=== PATIENT | female | born 1980 | race Caucasian/White ===

== ENCOUNTER → 2021-09-27 12:38 | Outpatient (BNVA) | payer OTHER, SELFPAY | PROVIDERS: Family Provider Internal Medicine; PCP Internal Medicine; Visit Provider Nurse Practitioner Family | DX: Z20.822 Contact with and (suspected) exposure to COVID-19 (principal) | CPT/HCPCS: 87400; 87426; 87635 ==

== ENCOUNTER 2023-06-17 11:30 | Emergency (ER) | payer SELFPAY ==
[2023-06-17] VITALS (7 sets, daily range): BP systolic 126–202; BP diastolic 87–127; PULSE 76–98; RESP 13–25; TEMP 36.7; O2SAT 95–100; BMI 30.2
--- NOTE | 2023-06-17 12:39 | CT_ITS ---
WS: [id number] CT HEAD TECHNIQUE: Noncontrast CT of the head obtained from the skullbase to the vertex. CLINICAL INFORMATION: headache COMPARISON: CT 2017 DLP: 1119.[address] scans at [facility] use at least one of these dose optimization techniques: automated e xposure control; mA and/or kV adjustment per patient size (includes targeted exams where dose is matc hed to clinical indication); or iterative reconstruction. FINDINGS: No evidence of intracranial hemorrhage or mass effect. Ventricular system and basal cisterns are sahu nt. No extra-axial fluid collections. No evidence of mass or mass effect. Normal moore-white different iation. Paranasal sinuses and mastoid air cells are well aerated. .Normal visualized soft tissues. CT/CT head wo con* [id number] IMPRESSION: 1. No evidence of intracranial hemorrhage or mass effect. 2. Normal moore-white differentiation. 3. No acute intracranial findings.
[2023-06-17 12:53] LABS: Basophils # 0.1 10^3/uL (0.0-0.1); Basophils % 0.7 %; Eosinophils # 0.1 10^3/uL (0.0-0.8); Eosinophils % 1.5 %; Lymphocytes # 2.1 10^3/uL (0.8-4.8); Lymphocytes % 28.5 %; Mean Corpuscular Hemoglobin 21.9 pg (28.0-34.0); Mean Corpuscular Volume 75.4 fl (81-99); Mean Platelet Volume 9.7 fL (7.4-10.4); Monocytes # 0.4 10^3/uL (0.2-0.9); Monocytes % 5.9 %; Neutrophils # 4.62 10^3/uL (1.8-7.7); Nucleated Red Blood Cells % 0 %; Platelet Count 294 10^3/cmm (130-400); Red Blood Count 4.11 10^6/uL (4.1-5.3); Red Cell Distribution Width 17.4 % (12.1-15.1); White Blood Count 7.3 10^3/uL (4.0-10.0)
[2023-06-17 12:55] LABS: Erythrocyte Sedimentation Rate 10 mm/hr (0-15)
[2023-06-17 13:00] LABS: D Dimer 0.56 ug/mIFEU (0-0.59)
[2023-06-17 13:04] LABS: Alanine Aminotransferase 17 U/L (0-33); Alkaline Phosphatase 52 U/L (35-105); Anion Gap 17.3 (5-19); Aspartate Amino Transferase 26 U/L (0-32); Blood Urea Nitrogen 7 mg/dL (6-20); Calcium 8.7 mg/dL (8.5-10.5); Carbon Dioxide 20 mmol/L (22-29); Chloride 98 mmol/L (98-107); Globulin 2.9 g/dL (1.3-4.6); Glomerular Filtration Rate 135.3 mL/min (90-130); Glucose 85 mg/dL (65-115); Osmolality Calculated 271 mOsm/kg (285-295); Potassium 3.3 mmol/L (3.5-5.1); Sodium 132 mmol/L (136-145); Total Bilirubin 0.2 mg/dL (0.15-1.2); Total Protein 6.9 g/dL (6.6-8.7)
[2023-06-17] MEDS: metoclopramide 5 mg/mL SDV 2 mL 10 MG IVP (13:40)
[2023-06-17] MEDS: diphenhydrAMINE 50 mg/mL SDV 1mL IVP (13:40)
[2023-06-17] MEDS: sodium chloride 0.9% 1,000 ML 999 ML IV (13:40)
[2023-06-17] MEDS: ketorolac 30 mg/mL INJ IVP (13:40)
--- NOTE | 2023-06-17 13:57 | W.ED.HA ---
HPI - Headache General: Chief Complaint: Headache Stated Complaint: headache and neck pain Time Seen by Provider: 06/17/23 11:40 History of Present Illness: Patient presents to the ER with a 5-day history of head and neck pain. Patient states that her headache started in her left temporal region and runs down her left shoulder. Patient states she has not had a migraine since 2017. Patient does have a history of DVT type anticoagulation. Patient states when her headache started she could see her heart rate pulsatile in her vision. Patient states it does come and g. It is usually starts in the morning gets worse throughout the day. Patient does admit she is an alcoholic and drinks daily. Review of Systems General: Reports: 10 or more systems reviewed and unremarkable except in HPI and below PFSH ED PFSH: Medical History Alcoholism Family History Father Diabetes Hypertension Hx of blood clots Bipolar 1 disorder Anxiety Depression Mother No problems noted. Social History Smoking and tobacco status: current every day smoker cigarettes Quit status (tobacco): not considering quitting Second hand smoke exposure: No Smoking risk assessment/counseling performed?: No Alcohol intake: current Desire information about alcohol rehabilitation?: No Counseling given: No Substance/Drug Use: current Substance/Drug use frequency: Special occassions/opportunity only Desire information about substance/drug rehabilitation?: No Counseling given: No Adopted: No Caregiver/support person: No Lives independently: Yes Household members: spouse and children Housing: House Marital status: Number of children: 2 Highest education level completed: GED or Equivalent service: No Current occupational status: employed Physical Exam Const: COMMON NORMALS: no acute distress, average body habitus, patient oriented x3, no limitations, healthy appearing, alert and well nourished HENMT: COMMON NORMALS: normocephalic, atraumatic, hearing grossly normal bilaterally, external ears normal, Normal external nose present and moist oral mucous membranes HEAD & SCALP: normocephalic and atraumatic NOSE: Normal external nose present EXTERNAL EAR: Yes external ears normal Eye: COMMON NORMALS: Equal, round and reactive pupils present, EOMs intact bilaterally, conjunctivae normal and no scleral icterus CONJUNCTIVA: Yes conjunctivae normal PUPIL: Yes Equal, round and reactive pupils present Neck/C-Spine: COMMON NORMALS: full ROM, no lymphadenopathy, supple, no meningeal signs, no JVD and Thyroid normal THYROID: Thyroid normal Chest: COMMONS NORMALS: normal inspection of the chest Resp: COMMON NORMALS: normal respiratory effort, No retractions, No use of accessory muscles and clear to auscultation bilaterally AUSCULTATION: clear to auscultation bilaterally Cardio: COMMON NORMALS: no JVD, regular rate, regular rhythm, S1 normal heart sound present, S2 normal heart sound present, No gallops present (Cardio), No clicks present (Cardio), No murmurs present (Cardio) and No rub (Cardio) RATE: regular rate RHYTHM: regular rhythm HEART SOUNDS: S1 normal heart sound present and S2 normal heart sound present GI: COMMON NORMALS: Normal to inspection, nondistended, normoactive bowel sounds present, Soft to palpation, No hepatosplenomegaly present and no masses PALPATION: Yes Soft to palpation and Yes No hepatosplenomegaly present : COMMON NORMALS: Yes no CVA tenderness BLADDER/KIDNEY EXAM: Yes no CVA tenderness Back/Pelvis: COMMON NORMALS: no CVA tenderness Neuro: COMMON NORMALS: patient oriented x3 SENSORIUM/ORIENTATION: Yes alert MENINGEAL SIGNS: Yes no meningeal signs Course Vital Signs: Vital signs: Vital Signs Temperature 98.1 F 06/17/23 11:37 Pulse Rate 78 06/17/23 14:59 Respiratory Rate 25 H 06/17/23 14:59 Blood Pressure 126/87 06/17/23 14:59 Pulse Oximetry 96 06/17/23 14:59 Oxygen Delivery Me thod Room Air 06/17/23 14:15 MDM - Headache Medical Decision Making Patient presents to the ER with sudden onset left-sided headache radiating down to her neck off and on for the last 5 days. Patient underwent evaluation and work-up that included blood work and CT scan. Essentially all of this was benign. Her blood work did show that she is amenable 9 and a little bit of hypokalemia with a potassium of 3.3. Differential Diagnosis Likely migraine and headache; Unlikely tension headache, subarachnoid hemorrhage, meningitis, sinusitis or postconcussion syndrome Medical Records I reviewed the patient's medical records. Lab Data I reviewed the patient's lab results. 06/17/23 12:41 06/17/23 12:[address] 06/17/23 12:39 IMPRESSION: 1. No evidence of intracranial hemorrhage or mass effect. 2. Normal moore-white differentiation. 3. No acute intracranial findings. Laboratory Results WBC 7.3 10^3/uL (4.0-10.0) 06/17/23 12:41 RBC 4.11 10^6/uL (4.1-5.3) 06/17/23 12:41 Hgb 9.0 g/dL (11.5-15.3) L 06/17/23 12:41 Hct 31.0 % (37.0-47.0) L 06/17/23 12:41 MCV 75.4 fl (81-99) L 06/17/23 12:41 MCH 21.9 pg (28.0-34.0) L 06/17/23 12:41 MCHC 29.0 g/dL (30.0-36.0) L 06/17/23 12:41 RDW 17.4 % (12.1-15.1) H 06/17/23 12:41 Plt Count 294 10^3/cmm (130-400) 06/17/23 12:41 MPV 9.7 fL (7.4-10.4) 06/17/23 12:41 Neut % (Auto) 63.0 % 06/17/23 12:41 Lymph % (Auto) 28.5 % 06/17/23 12:41 Rolette % (Auto) 5.9 % 06/17/23 12:41 Eos % (Auto) 1.5 % 06/17/23 12:41 Baso % (Auto) 0.7 % 06/17/23 12:41 Neut # (Auto) 4.62 10^3/uL (1.8-7.7) 06/17/23 12:41 Lymph # (Auto) 2.1 10^3/uL (0.8-4.8) 06/17/23 12:41 Rolette # (Auto) 0.4 10^3/uL (0.2-0.9) 06/17/23 12:41 Eos # (Auto) 0.1 10^3/uL (0.0-0.8) 06/17/23 12:41 Baso # (Auto) 0.1 10^3/uL (0.0-0.1) 06/17/23 12:41 Nucleated RBC % (auto) 0 % 06/17/23 12:41 Nucleated RBCs # 0.0 /100WBC 06/17/23 12:41 ESR 10 mm/hr (0-15) 06/17/23 12:41 D-Dimer 0.56 ug/mIFEU (0-0.59) 06/17/23 12:41 Sodium 132 mmol/L (136-145) L 06/17/23 12:41 Potassium 3.3 mmol/L (3.5-5.1) L 06/17/23 12:41 Chloride 98 mmol/L (98-107) 06/17/23 12:41 Carbon Dioxide 20 mmol/L (22-29) L 06/17/23 12:41 Anion Gap 17.3 (5-19) 06/17/23 12:41 BUN 7 mg/dL (6-20) 06/17/23 12:41 Creatinine 0.5 mg/dL (0.5-0.9) 06/17/23 12:41 GFR Calculation 135.3 mL/min (90-130) H 06/17/23 12:41 Glucose 85 mg/dL (65-115) 06/17/23 12:41 Calculated Osmolality 271 mOsm/kg (285-295) L 06/17/23 12:41 Calcium 8.7 mg/dL (8.5-10.5) 06/17/23 12:41 Total Bilirubin 0.2 mg/dL (0.15-1.2) 06/17/23 12:41 AST 26 U/L (0-32) 06/17/23 12:41 ALT 17 U/L (0-33) 06/17/23 12:41 Alkaline Phosphatase 52 U/L (35-105) 06/17/23 12:41 C-Reactive Protein 3.0 mg/L (0.0-4.9) 06/17/23 12:41 Total Protein 6.9 g/dL (6.6-8.7) 06/17/23 12:41 Albumin 4.0 g/dL (3.5-5.2) 06/17/23 12:41 Globulin 2.9 g/dL (1.3-4.6) 06/17/23 12:41 Urine Color Light yellow (Yellow) 06/17/23 14:43 Urine Appearance Clear (CLEAR) 06/17/23 14:43 Urine pH 6.5 (5-7) 06/17/23 14:43 Ur Specific Luther 1.005 (1.005-1.030) 06/17/23 14:43 Urine Protein Neg (Negative) 06/17/23 14:43 Urine Glucose (UA) Norm (Normal) 06/17/23 14:43 Urine Ketones 1+ (Negative) H 06/17/23 14:43 Urine Blood Neg (Negative) 06/17/23 14:43 Urine Nitrate Negative (Negative) 06/17/23 14:43 Urine Bilirubin Neg (Negative) 06/17/23 14:43 Urine Urobilinogen Norm mg/dL (Negative) 06/17/23 14:43 Ur Leukocyte Esterase Negative (Negative) 06/17/23 14:43 Discharge Plan Discharge Patient Disposition: Home Clinical Impression: Headache Qualifiers: Headache type: tension-type Headache chronicity pattern: acute headache Intractability: intractable Qualified Code(s): G44.201 - Tension-type headache, unspecified, intractable Anemia Qualifiers: Anemia type: unspecified type Qualified Code(s): D64.9 - Anemia, unspecified Condition: Stable Prescriptions: No Action Aleve 220 mg Tablet 1,320 mg PO .ONE TIME DOSE TODAY Advil 200 mg Tablet 800 mg PO Q6H PRN (Reason: Pain) Discharge Orders: Discharge ED (Routine); Ordered 06/17/23 Ordered By: Jevon Reyes Referrals: Yousif Vázquez MD [Primary Care Provider] - 1 week Patient Instructions: Anemia, Acute Headache (ED) Activity Restrictions/Additional Instructions: Please follow-up with your family practice doctor in approximately 1 week for further evaluation and treatment. Please return to the ER if your symptoms worsen. Coding Level of Care Code ED Sheriff Officer for Pari Mcneal
[2023-06-17 14:58] LABS: Add Urine Microscopic? NO; Charge for UA Resulting for Rev
[2023-06-17 15:03] LABS: Bilirubin Urine Neg (Negative); Blood Urine Neg (Negative); Glucose Urine UA Norm (Normal); Ketones Urine 1+ (Negative); Leukocyte Esterase Urine Negative (Negative); Nitrate Urine Negative (Negative); Protein Urine Neg (Negative); Specific Gravity, Urine 1.005 (1.005-1.030); Urine Appearance Clear (CLEAR); Urine Color Light yellow (Yellow); Urobilinogen Urine Norm (Negative); pH Urine 6.5 (5-7)
== END 2023-06-17 15:36 | disposition home or self-care (01) ==
PROVIDERS: Emergency Provider Emergency Medicine; PCP Internal Medicine
DX: G44.201 Tension-type headache, unspecified, intractable (principal); D64.9 Anemia, unspecified
CPT/HCPCS: 70450; 80053; 81003; 85025; 85378; 85651; 86140; 96361; 96374; 96375; 99285; J1200; J1885; J2765; J7030

== ENCOUNTER 2023-06-20 16:03 | Emergency (ER) | payer SELFPAY ==
[2023-06-20 16:19] VITALS: BP 196/116; PULSE 89; RESP 16; TEMP 36.8; O2SAT 100; BMI 29.8
--- NOTE | 2023-06-20 16:30 | W.ED.HA ---
HPI - Headache General: Chief Complaint: Headache Stated Complaint: High Blood Pressure, head neck and pain Time Seen by Provider: 06/20/23 16:27 History of Present Illness: Patient presents to the ER with complaints of headache and high blood pressure. Patient was sent over here from [facility]. Patient went there to get blood pressure medicine for her newly diagnosed high blood pressure. They found her blood pressure to be in the 200s and they sent her over here for further evaluation and treatment. Patient has no other complaints at this time other than headache. Patient was seen here approximately 3 days ago and had a complete work-up for similar symptoms. Which was gated. Review of Systems General: Reports: 10 or more systems reviewed and unremarkable except in HPI and below PFSH ED PFSH: Medical History Alcoholism Family History Father Diabetes Hypertension Hx of blood clots Bipolar 1 disorder Anxiety Depression Mother No problems noted. Social History Smoking and tobacco status: current every day smoker cigarettes Quit status (tobacco): not considering quitting Second hand smoke exposure: No Smoking risk assessment/counseling performed?: No Alcohol intake: current Desire information about alcohol rehabilitation?: No Counseling given: No Substance/Drug Use: current Substance/Drug use frequency: Special occassions/opportunity only Desire information about substance/drug rehabilitation?: No Counseling given: No Adopted: No Caregiver/support person: No Lives independently: Yes Household members: spouse and children Housing: House Marital status: Number of children: 2 Highest education level completed: GED or Equivalent service: No Current occupational status: employed Physical Exam Const: COMMON NORMALS: no acute distress, average body habitus, patient oriented x3, no limitations, healthy appearing, alert and well nourished HENMT: COMMON NORMALS: normocephalic, atraumatic, hearing grossly normal bilaterally, external ears normal, Normal external nose present and moist oral mucous membranes HEAD & SCALP: normocephalic and atraumatic NOSE: Normal external nose present EXTERNAL EAR: Yes external ears normal Neck/C-Spine: COMMON NORMALS: full ROM, no lymphadenopathy, supple, no meningeal signs, no JVD and Thyroid normal THYROID: Thyroid normal Chest: COMMONS NORMALS: normal inspection of the chest and normal palpation of entire chest wall Resp: COMMON NORMALS: normal respiratory effort, No retractions, No use of accessory muscles and clear to auscultation bilaterally AUSCULTATION: clear to auscultation bilaterally Cardio: COMMON NORMALS: no JVD, regular rate, regular rhythm, S1 normal heart sound present, S2 normal heart sound present, No gallops present (Cardio), No clicks present (Cardio), No murmurs present (Cardio) and No rub (Cardio) RATE: regular rate RHYTHM: regular rhythm HEART SOUNDS: S1 normal heart sound present and S2 normal heart sound present GI: COMMON NORMALS: Normal to inspection, nondistended, normoactive bowel sounds present, Soft to palpation, non-tender, No hepatosplenomegaly present and no masses PALPATION: Yes Soft to palpation and Yes No hepatosplenomegaly present Neuro: COMMON NORMALS: patient oriented x3 SENSORIUM/ORIENTATION: Yes alert MENINGEAL SIGNS: Yes no meningeal signs Course Vital Signs: Vital signs: Vital Signs Temperature 98.3 F 06/20/23 16:19 Pulse Rate 73 06/20/23 18:00 Respiratory Rate 16 06/20/23 18:00 Blood Pressure 126/78 06/20/23 18:00 Pulse Oximetry 99 06/20/23 18:00 Oxygen Delivery Me thod Room Air 06/20/23 16:19 MDM - Headache Medical Decision Making Patient presents ER with high blood pressure and headache. Patient was seen 3 days ago for the exact same symptoms and work-up. Today patient was given 0.2 mg clonidine p.o. and 60 mg IM of Toradol. Upon further evaluation her blood pressure drastically improved down to normal and her headache had been resolved. Patient will be discharged with clonidine to go home on and told to follow back up with her PCP. Differential Diagnosis Likely headache; Unlikely migraine, tension headache, subarachnoid hemorrhage, meningitis or sinusitis Medical Records I reviewed the patient's medical records. Lab Data I reviewed the patient's lab results. Discharge Plan Discharge Patient Disposition: Home Clinical Impression: Headache Qualifiers: Headache type: unspecified Headache chronicity pattern: acute headache Intractability: not intractable Qualified Code(s): R51.9 - Headache, unspecified HBP (high blood pressure) Qualifiers: Hypertension type: unspecified Qualified Code(s): I10 - Essential (primary) hypertension Condition: Stable Prescriptions: New clonidine HCl 0.1 mg tablet 0.05 mg PO Q12H Qty: 60 0RF No Action Aleve 220 mg Tablet 1,320 mg PO .ONE TIME DOSE TODAY Advil 200 mg Tablet 800 mg PO Q6H PRN (Reason: Pain) Discharge Orders: Discharge ED (Routine); Ordered 06/20/23 Ordered By: Jevon Reyes Referrals: Yousif Vázquez MD [Primary Care Provider] - 4-7 days Patient Instructions: Hypertension Activity Restrictions/Additional Instructions: Please take your medicine as directed. Please follow-up with your family practice doctor in the next 7 to 10 days or sooner as needed for further evaluation and treatment. Coding Level of Care Code ED Rocket Test Fire Worker for Pari Mcneal
[2023-06-20 16:44] VITALS: BP 204/120
[2023-06-20] MEDS: cloNIDine 0.1 mg Tablet 0.2 MG PO (16:44)
[2023-06-20 18:00] VITALS: BP 126/78; PULSE 73; RESP 16; O2SAT 99
[2023-06-20] MEDS: ketorolac 60 mg/2 mL INJ IM (18:12)
[2023-06-20 19:15] VITALS: BP 111/79; PULSE 67; RESP 16; O2SAT 96
== END 2023-06-20 19:17 | disposition home or self-care (01) ==
PROVIDERS: Emergency Provider Emergency Medicine; PCP Internal Medicine
DX: R51.9 Headache, unspecified (principal); I10 Essential (primary) hypertension; F17.210 Nicotine dependence, cigarettes, uncomplicated
CPT/HCPCS: 96372; 99284; J1885

== ENCOUNTER 2024-08-20 08:27 | Emergency (ER) | payer OTHER, SELFPAY ==
--- NOTE | 2024-08-20 08:32 | XR_ITS ---
WS: [id number] Portable AP upright chest, 08/20/2024 Clinical Data: dyspnea/cough Comparison: Portable chest, 12/14/2015 Findings: No nodules, masses or effusions are seen. The heart is normal. The pulmonary vascularity is not increased. No pneumonia or pneumothorax is seen. XR/XR chest 1V portable [id number] Impression: Negative chest.
--- NOTE | 2024-08-20 08:32 | ECG_ITS ---
[facility] Test Date: 2024-08-20 Pat Name: Amada Rucker Department: Room: Gender: Female Housecleaner: : 1980 Requested By: Orlando Santoro Order Number: [id number] Saskia MD: Mani Quintero M.D. Measurements Intervals [place] Rate: 80 P: 55 PA: 175 QRS: 41 QRSD: 106 T: 37 QT: 355 QTc: 409 Interpretive Statements SINUS RHYTHM Compared to ECG 05/03/2017 14:23:15 No significant changes Electronically Signed On 08-20-2024 16:35:53 CDT by Mani Quintero M.D. [id number]
[2024-08-20 08:33] VITALS: BP 184/88; PULSE 109; RESP 22; TEMP 36.4; O2SAT 99
[2024-08-20 09:04] VITALS: BP 184/88; PULSE 88; O2SAT 99
--- NOTE | 2024-08-20 09:08 | ED_ITS ---
HPI - General Adult 2 General: Chief complaint: General Medical Stated complaint: face swelling, high bp, pain in neck Time Seen by Provider: 08/20/24 08:31 History of Present Illness: 44-year-old female presents emergency ro om with complaint of swelling on the left side of her face. States it began yesterday she denies any difficulty speaking or swallowing she denies any teeth pain. She felt a little bit short of breath last night but she states she thinks it may be a cardiac site. She does not have any fever on arrival here. She denies any chest pain or abdominal pain. Patient admits to being alcoholic but states she has cut down her drinking substantially is only drinking a couple drinks a day for the last several weeks Associated symptoms: Deny chest pain, dyspnea or rash Related Data Home Medications Medication Instructions Recorded Confirmed ibuprofen 200 mg tablet (Advil) 800 mg PO Q6H PRN Pain 06/17/23 08/20/24 naproxen sodium 220 mg tablet 1,320 mg PO PRN PRN Pain 06/17/23 08/20/24 (Aleve) lisinopril 20 1 tab PO DAILY 08/20/24 08/20/24 mg-hydrochlorothiazide 12.5 mg tablet Previous Rx's Medication Instructions Recorded amoxicillin 875 mg-potassium 1 tab PO BID #20 tabs 08/20/24 clavulanate 125 mg tablet Allergies Allergy/AdvReac Type Severity Reaction Status Date / Time acetaminophen [From Vicodin] Allergy Intermediate itching, Verified 06/20/23 16:25 rash hydrocodone [From Vicodin] Allergy Intermediate itching, Verified 06/20/23 16:25 rash morphine Allergy Intermediate itching, Verified 06/20/23 16:25 rash Review of Systems 2 Const: Denies: fever(s) or chills Card: Denies: chest pain Resp: Denies: dyspnea GI: Denies: abdominal pain : Denies: dysuria, urinary frequency or urinary urgency Musc: Denies: neck pain or back pain Skin/Breast: Reports: skin pain, skin tenderness and skin swelling; Denies: rash PFSH ED 2 PFSH: Medical History Alcoholism Family History Father Diabetes Hypertension Hx of blood clots Bipolar 1 disorder Anxiety Depression Mother No problems noted. Social History Smoking and tobacco/nicotine status: current every day tobacco/nicotine user cigarettes Quit status (tobacco/nicotine): not considering quitting Second hand smoke exposure: No Alcohol intake: current Substance/Drug Use: current Substance/Drug use frequency: Special occassions/opportunity only Adopted: No Caregiver/support person: No Lives independently: Yes Household members: spouse and children Housing: House Marital status: Number of children: 2 Highest education level completed: GED or Equivalent service: No Current occupational status: employed Physical Exam 2 Const: GENERAL APPEARANCE: cooperative ORIENTATION/CONSCIOUSNESS: Yes awake, Yes oriented to person, Yes oriented to place and Yes oriented to time HENMT: COMMON NORMALS: normocephalic, atraumatic and hearing grossly normal bilaterally HEAD & SCALP: normocephalic and atraumatic OTHER: Moderate swelling of the left side of the face over the cheek left mandible extending to the neck. There is no tenderness palpation along the parotid gland no swelling or tenderness in the submandibular space no inflammation around the sublingual gland under the tongue on direct examination. There is no induration there is no redness or erythema. It is moderately tender to the touch no palpable lymph nodes were noted. On oral exam there is no evidence of significant deterioration of teeth or fractured teeth no swelling at the gumline. No palpable pain along the gumline of the left mandibular molars Resp: COMMON NORMALS: normal respiratory effort, No retractions, No use of accessory muscles and clear to auscultation bilaterally AUSCULTATION: clear to auscultation bilaterally Cardio: COMMON NORMALS: regular rate, regular rhythm and No murmurs present (Cardio) RATE: regular rate RHYTHM: regular rhythm GI: COMMON NORMALS: Soft to palpation and No hepatosplenomegaly present A USCULTATION: Yes normoactive bowel sounds PALPATION: Yes Soft to palpation, No Tenderness to palpation present (GI), No Guarding due to palpation present (GI) and Yes No hepatosplenomegaly present Extremity: COMMON NORMALS: normal to inspection, capillary refill normal, no clubbing, cyanosis or edema, no calf tenderness and no pedal edema Neuro: SENSORIUM/ORIENTATION: Yes oriented to person, Yes oriented to place and Yes oriented to time Skin: COMMON NORMALS: no rashes or lesions noted GENERAL SKIN EXAM: no rashes or lesions noted OTHER: No appreciable lacerations or abrasions on the left side of the face or neck Course 2 Vital Signs: Vital signs: Vital Signs Temperature 97.6 F 08/20/24 08:33 Pulse Rate 65 08/20/24 13:41 Respiratory Rate 22 H 08/20/24 08:33 Blood Pressure 160/84 08/20/24 13:41 Pulse Oximetry 100 08/20/24 13:41 Oxygen Delivery Me thod Room Air 08/20/24 13:34 MDM - General Adult Medical Decision Making No evidence of parotitis. Patient denies any tooth pain at time did not see any gum swelling or irritation. CT shows facial cellulitis she has no obvious lacerations or skin breaks abrasions that might be the focus of it. She denies any tooth pain. Discussed with radiologist he did not feel there is anything radiating directly out of the teeth themselves. We discussed getting CT facial bones radiologist felt that would not contribute significantly to the mandible well on the CT of the neck. Will start patient on Augmentin. Continue other medications. If symptoms worsen recheck. Medical Records I reviewed the patient's medical records. Lab Data I reviewed the patient's lab results. 08/20/24 09:03 08/20/24 09:03 Radiology Impressions Chest X-Ray 08/20/24 08:32 Impression: Negative chest. Neck CT 08/20/24 09:45 IMPRESSION: 1. LEFT facial cellulitis extending into the LEFT submandibular space and submental soft tissues. No drainable abscess or fluid collection. 2. Airway is patent. 3. A few reactive LEFT submandibular and upper cervical chain lymph nodes. Laboratory Results WBC 4.18 10^3/uL (3.29-11.43) 08/20/24 09:03 RBC 3.97 10^6/uL (3.85-5.65) 08/20/24 09:03 Hgb 8.80 g/dL (11.27-16.99) L 08/20/24 09:03 Hct 30.7 % (36-47) L 08/20/24 09:03 MCV 77.3 fl (85-98) L 08/20/24 09:03 MCH 22.2 pg (27-33) L 08/20/24 09:03 MCHC 28.7 g/dL (30-55) L 08/20/24 09:03 RDW 17.2 % (12.1-15.1) H 08/20/24 09:03 Plt Count 211 10^3/cmm (157-399) 08/20/24 09:03 MPV 9.6 fL (7.4-10.4) 08/20/24 09:03 Neut % (Auto) 65.2 % 08/20/24 09:03 Lymph % (Auto) 24.6 % 08/20/24 09:03 [place] % (Auto) 8.1 % 08/20/24 09:03 Eos % (Auto) 1.7 % 08/20/24 09:03 Baso % (Auto) 0.2 % 08/20/24 09:03 Neut # (Auto) 2.72 10^3/uL (1.8-7.7) 08/20/24 09:03 Lymph # (Auto) 1.0 10^3/uL (0.8-4.8) 08/20/24 09:03 [place] # (Auto) 0.3 10^3/uL (0.2-0.9) 08/20/24 09:03 Eos # (Auto) 0.1 10^3/uL (0.0-0.8) 08/20/24 09:03 Baso # (Auto) 0.0 10^3/uL (0.0-0.1) 08/20/24 09:03 Nucleated RBC % (auto) 0 % 08/20/24 09:03 Nucleated RBCs # 0.0 /100WBC 08/20/24 09:03 Sodium 140 mmol/L (136-145) 08/20/24 09:03 Potassium 3.2 mmol/L (3.5-5.1) L 08/20/24 09:03 Chloride 105 mmol/L (98-107) 08/20/24 09:03 Carbon Dioxide 22 mmol/L (22-29) 08/20/24 09:03 Anion Gap 16.2 (5-19) 08/20/24 09:03 BUN 8 mg/dL (6-20) 08/20/24 09:03 Creatinine 0.6 mg/dL (0.5-0.9) 08/20/24 09:03 GFR Calculation 109.1 mL/min (90-130) 08/20/24 09:03 Glucose 112 mg/dL (65-115) 08/20/24 09:03 Calculated Osmolality 289 mOsm/kg (285-295) 08/20/24 09:03 Calcium 8.8 mg/dL (8.5-10.5) 08/20/24 09:03 Total Bilirubin 0.4 mg/dL (0.15-1.2) 08/20/24 09:03 AST 58 U/L (0-32) H 08/20/24 09:03 ALT 51 U/L (0-33) H 08/20/24 09:03 Alkaline Phosphatase 49 U/L (35-105) 08/20/24 09:03 Ammonia 42 umol/L (11-51) 08/20/24 09:03 Troponin T Baseline < 6 ng/L (0-10) 08/20/24 09:03 Troponin T 120 Minute 6.00 ng/L (0-10) 08/20/24 10:36 Delta Troponin T 0.85123 ABS# (0-10) 08/20/24 10:36 Total Protein 6.6 g/dL (6.6-8.7) 08/20/24 09:03 Albumin 3.9 g/dL (3.5-5.2) 08/20/24 09:03 Globulin 2.7 g/dL (1.3-4.6) 08/20/24 09:03 Urine Color Yellow (Yellow) 08/20/24 09:10 Urine Appearance Cloudy (CLEAR) A 08/20/24 09:10 Urine pH 7.0 (5-7) 08/20/24 09:10 Ur Specific [place] 1.002 (1.005-1.030) L 08/20/24 09:10 Urine Protein Negative (Negative) 08/20/24 09:10 Urine Glucose (UA) Negative (Normal) 08/20/24 09:10 Urine Ketones Negative (Negative) 08/20/24 09:10 Urine Blood Negative (Negative) 08/20/24 09:10 Urine Nitrate Negative (Negative) 08/20/24 09:10 Urine Bilirubin Negative (Negative) 08/20/24 09:10 Urine Urobilinogen 0.2 mg/dL (Negative) 08/20/24 09:10 Ur Leukocyte Esterase Negative (Negative) 08/20/24 09:10 Urine RBC 0-2 /hpf (0-2) 08/20/24 09:10 Urine WBC 0-5 /hpf (0-5) 08/20/24 09:10 Ur Squamous Epith Cells 0-5 /hpf (0-5) 08/20/24 09:10 Amorphous Sediment Not Reportable 08/20/24 09:10 Urine Bacteria None seen /hpf (NONE) 08/20/24 09:10 Hyaline Casts 0-4 /lpf H 08/20/24 09:10 Ethyl Alcohol < 10 mg/dL (0-10) 08/20/24 09:03 All radiology interpretation(s) finalized by discharge Discharge Plan Discharge Patient Disposition: Home Clinical Impression: Cellulitis and abscess of face Condition: Stable Prescriptions: New amoxicillin-pot clavulanate 875-125 mg tablet 1 tab PO BID Qty: 20 0RF No Action naproxen sodium [Aleve] 220 mg Tablet 1,320 mg PO PRN PRN (Reason: Pain) ibuprofen [Advil] 200 mg Tablet 800 mg PO Q6H PRN (Reason: Pain) lisinopril-hydrochlorothiazide 20-12.5 mg tablet 1 tab PO DAILY Discharge Orders: Discharge ED (Routine); Ordered 08/20/24 Ordered By: Orlando Méndez Referrals: Yousif Vázquez MD [Primary Care Provider] - Discharge Diet: Advance as tolerated Discharge Activity: Resume usual activity Patient Instructions: Opioid Safety, Pain Management Activity Restrictions/Additional Instructions: Thank you for choosing [facility] for your healthcare needs today. It is very important that you follow up as instructed or that you return to the Emergency Department should you have concerns or if your condition changes or worsens in any way. You are seen today with complaint of facial pain and swelling. CT shows some mild cellulitis that appears to be emanating from the tooth. There is no abscess present recommend that you start oral antibiotics Augmentin 1 pill twice a day for 10 days. If symptoms worsen or change recheck. Coding Level of Care Code ED Prosthetic Technician for Pari Mcneal
[2024-08-20 09:15] LABS: Basophils % 0.2 %; Eosinophils # 0.1 10^3/uL (0.0-0.8); Eosinophils % 1.7 %; Hematocrit 30.7 % (36-47); Lymphocytes % 24.6 %; Mean Corpuscular HGB Conc 28.7 g/dL (30-55); Mean Corpuscular Hemoglobin 22.2 pg (27-33); Mean Corpuscular Volume 77.3 fl (85-98); Mean Platelet Volume 9.6 fL (7.4-10.4); Monocytes # 0.3 10^3/uL (0.2-0.9); Monocytes % 8.1 %; Neutrophils # 2.72 10^3/uL (1.8-7.7); Neutrophils % 65.2 %; Nucleated Red Blood Cells % 0 %; Platelet Count 211 10^3/cmm (157-399); Red Blood Count 3.97 10^6/uL (3.85-5.65); Red Cell Distribution Width 17.2 % (12.1-15.1); White Blood Count 4.18 10^3/uL (3.29-11.43)
[2024-08-20 09:32] LABS: Troponin(5th) Baseline < 6 ng/L (0-10)
[2024-08-20 09:34] LABS: Alanine Aminotransferase 51 U/L (0-33); Albumin Level 3.9 g/dL (3.5-5.2); Alkaline Phosphatase 49 U/L (35-105); Anion Gap 16.2 (5-19); Aspartate Amino Transferase 58 U/L (0-32); Blood Urea Nitrogen 8 mg/dL (6-20); Calcium 8.8 mg/dL (8.5-10.5); Carbon Dioxide 22 mmol/L (22-29); Chloride 105 mmol/L (98-107); Creatinine Clr Calc Pharmacy 117.2783; Globulin 2.7 g/dL (1.3-4.6); Glomerular Filtration Rate 109.1 mL/min (90-130); Glucose 112 mg/dL (65-115); Osmolality Calculated 289 mOsm/kg (285-295); Potassium 3.2 mmol/L (3.5-5.1); Sodium 140 mmol/L (136-145); Total Bilirubin 0.4 mg/dL (0.15-1.2); Total Protein 6.6 g/dL (6.6-8.7)
[2024-08-20 09:35] LABS: Bilirubin Urine Negative (Negative); Blood Urine Negative (Negative); Glucose Urine UA Negative (Normal); Ketones Urine Negative (Negative); Leukocyte Esterase Urine Negative (Negative); Nitrate Urine Negative (Negative); Protein Urine Negative (Negative); Specific Gravity, Urine 1.002 (1.005-1.030); Urine Appearance Cloudy (CLEAR); Urine Color Yellow (Yellow); Urobilinogen Urine 0.2 mg/dL (Negative)
[2024-08-20 09:37] LABS: Add Urine Microscopic? YES; Bacteria Urine None Seen /hpf; Hyaline Casts Urine 0-4 /lpf; RBC Urine 0-2 /hpf (0-2); Squamous Epithelial Cell Urine 0-5 /hpf (0-5); WBC Urine 0-5 /hpf (0-5)
--- NOTE | 2024-08-20 09:45 | CT_ITS ---
WS: [id number] CT NECK TECHNIQUE: Contrast-enhanced CT of the neck with coronal and sagittal reformatted images. CLINICAL INFORMATION: dysphagia COMPARISON: None. DLP: 301.[address] scans at [facility] use at least one of these dose optimization techniques: automated e xposure control; mA and/or kV adjustment per patient size (includes targeted exams where dose is matc hed to clinical indication); or iterative reconstruction. FINDINGS: Induration with inflammatory changes and edema involving the LEFT facial soft tissues aruna tible with cellulitis. Thickening of the platysma. No drainable fluid collections. Reactive submandib ular lymph nodes. Paranasal sinuses are well aerated. Mastoid air cells are well aerated. Partially visualized intracra nial contents appear normal. Normal posterior nasopharynx and parapharyngeal fat. No evidence of supraglottic or glottic mass. Air way is patent. Straightening of the normal cervical lordosis. Mild spondylitic changes. Disc osteophyte complex C6-[address]/CT neck w con* [id number] IMPRESSION: 1. LEFT facial cellulitis extending into the LEFT submandibular space and sub mental soft tissues. No drainable abscess or fluid collection. 2. Airway is patent. 3. A few reactive LEFT submandibular and upper cervical chain lymph nodes.
[2024-08-20 09:53] LABS: Ammonia 42 umol/L (11-51)
[2024-08-20 10:05] LABS: Alcohol Level < 10 mg/dL (0-10)
--- NOTE | 2024-08-20 10:32 | ECG_ITS ---
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 Measurements Intervals [place] Rate: 71 P: 50 NV: 188 QRS: 41 QRSD: 96 T: 32 QT: 383 QTc: 418 Interpretive Statements SINUS RHYTHM WITH SINUS ARRHYTHMIA Compared to ECG 08/20/2024 09:12:41 No significant changes Electronically Signed On 08-20-2024 16:36:40 CDT by Mani Quintreo M.D. [email or web address]
[2024-08-20 10:57] LABS: Troponin 5 2HR Delta 0.00001 ABS# (0-10)
[2024-08-20] MEDS: iohexol 350 mg/mL 500 mL Btl (per mL) IV (10:58)
[2024-08-20 11:04] VITALS: BP 160/91; PULSE 77; O2SAT 99
[2024-08-20 12:19] VITALS: BP 149/73; PULSE 79; O2SAT 100
[2024-08-20 13:34] VITALS: BP 160/84; PULSE 64; O2SAT 99
[2024-08-20 13:41] VITALS: BP 160/84; PULSE 65; O2SAT 100
== END 2024-08-20 13:43 | disposition home or self-care (01) ==
PROVIDERS: Emergency Provider Family Medicine; PCP Internal Medicine
DX: L03.211 Cellulitis of face (principal); L02.01 Cutaneous abscess of face; F17.210 Nicotine dependence, cigarettes, uncomplicated
CPT/HCPCS: 36415; 70491; 71045; 80053; 80307; 81001; 82140; 84484; 85025; 93005; 99285